=== PATIENT | female | born 1945 | race American Indian/Alaskan Native ===

== ENCOUNTER 2018-10-24 19:51 | Emergency (ER) | payer OTHER ==
--- NOTE | 2018-10-24 20:45 | Emergency Department Report ---
Chief Complaint: Headache Stated Complaint: HEADACHE/BLURRED VISION Time Seen by Provider: 10/24/18 20:39 - HPI History of Present Illness: pt presents to the ED with c/o diffuse KWON started yesterday pt has seeing spots in her vision + generalized weakness no numbness, unilateral weakness PMhx HTN has not been taking medication since she came from [place] last week will send to [facility] for further eval and management MSE screening note: Focused history and physical exam performed. Due to findings the following was ordered: CT head, labs
[2018-10-24 21:03] LABS: Basophils % (Auto) 0.6 % (0.0-1.8); Eosinophils # (Auto) 0.9 K/mm3 (0.0-0.4); Eosinophils % (Auto) 10.4 % (0.0-4.3); Hematocrit 39.8 % (30.3-42.9); Hemoglobin 13.4 gm/dl (10.1-14.3); Lymphocytes # (Auto) 3.4 K/mm3 (1.2-5.4); Lymphocytes % (Auto) 41.5 % (13.4-35.0); Mean Corpuscular HGB Conc 34 % (30-34); Mean Corpuscular Volume 88 fl (79-97); Monocytes # (Auto) 0.8 K/mm3 (0.0-0.8); Monocytes % (Auto) 9.8 % (0.0-7.3); Platelet Count 329 K/mm3 (140-440); Red Cell Distribution Width 13.4 % (13.2-15.2)
[2018-10-24 21:12] LABS: INR 0.9 (0.87-1.13)
[2018-10-24 21:13] LABS: Partial Thromboplastin Time 24.8 Sec. (24.2-36.6)
[2018-10-24 21:26] LABS: Alanine Aminotransferase 14 units/L (7-56); BUN/Creatinine Ratio 23; Blood Urea Nitrogen 18 mg/dL (7-17); Calcium 9.2 mg/dL (8.4-10.2); Hemolysis Index 6
--- NOTE | 2018-10-24 22:25 | Cat Scan Report ---
PROCEDURE: CT HEAD/BRAIN WO CON HISTORY: KWON, black spots in vision FINDINGS: Unenhanced CT of the brain was performed and demonstrates a hyperdense focus in the left fr ontoparietal periventricular white matter, image 32, 0.8 cm suspicious for acute hemorrhage. There is no extra-axial hemorrhage identified. There is no midline shift or mass effect. 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 The mastoid air cells and middle ears appear clear. There is no evidence of acute sinusitis. Both globes are unremarkable. There is no retrobulbar mass or hemorrhage. IMPRESSION: Acute left frontoparietal white matter intraparenchymal hemorrhage This document is electronically signed by Josh Santoyo MD., October 24 2018 10:24:01 PM ET
--- NOTE | 2018-10-24 22:41 | Emergency Department Report ---
ED Neuro Deficit HPI - General Chief Complaint: Headache Stated Complaint: HEADACHE/BLURRED VISION Time Seen by Provider: 10/24/18 20:39 Source: patient Mode of arrival: Ambulatory Limitations: No Limitations - History of Present Illness Initial Comments: Patient is 72 years old female with history of hypertension. Patient arrived from [place] last week for her visits. Patient brought to the emergency room by her daughter. Daughter translating for the patient. Daughter stated that mother is complaining of headache since yesterday with blurry vision. She denied any confusion, focal weakness numbness or tingling sensation. She stated that she is feeling generalized weakness. The patient denied any chest pain or shortness of breath. No bowel or bladder incontinence. GCS is 15. -: Last night Presenting Symptoms: Present: Blurred/Loss of Vision History of same: No Place: home Context: gradual onset - Related Data Allergies/Adverse Reactions: Allergies Allergy/AdvReac Type Severity Reaction Status Date / Time No Known Allergies Allergy Unverified 10/24/18 20:14 ED Review of Systems ROS: Stated complaint: HEADACHE/BLURRED VISION Other details as noted in HPI Comment: All other systems reviewed and negative Constitutional: denies: chills, fever Respiratory: denies: shortness of breath Cardiovascular: denies: chest pain, palpitations Gastrointestinal: denies: abdominal pain, nausea, vomiting, diarrhea, constipation, hematemesis Musculoskeletal: denies: back pain Neurological: headache, weakness (generalized). denies: numbness, paresthesias, confusion, abnormal gait ED Past Medical Hx - Past Medical History Hx Hypertension: Yes - Social History Smoking Status: Never Smoker Substance Use Type: None ED Neuro Physical Exam - General Limitations: No Limitations General appearance: alert, in no apparent distress Suspected Stroke: Yes - Head Head exam: Present: atraumatic, normocephalic, normal inspection - Eye Eye exam: Present: normal appearance, PERRL - ENT ENT exam: Present: normal exam, normal orophraynx, mucous membranes moist - Neck Neck exam: Present: normal inspection, full ROM. Absent: tenderness, meningismus, lymphadenopathy, thyromegaly - Respiratory Respiratory exam: Present: normal lung sounds bilaterally. Absent: respiratory distress, wheezes, rales, rhonchi, chest wall tenderness - Cardiovascular Cardiovascular Exam: Present: regular rate, normal rhythm, normal heart sounds - GI/Abdominal GI/Abdominal exam: Present: soft, normal bowel sounds. Absent: distended, tenderness, guarding, rebound, rigid, organomegaly, mass, bruit, pulsatile mass, hernia - Extremities Exam Extremities exam: Present: normal inspection, full ROM, normal capillary refill. Absent: pedal edema, calf tenderness - Back Exam Back exam: Present: normal inspection, full ROM. Absent: tenderness, CVA tenderness (R), CVA tenderness (L), muscle spasm, paraspinal tenderness, vertebral tenderness - Neurological Exam Neurological exam: Present: alert, oriented X3, CN II-XII intact, normal gait, reflexes normal - NIHSS Assessment Interval: Baseline 1a. Level of Consciousness: alert/keenly responsive 1b. LOC Questions: answers both correctly 1c. LOC Commands: performs tasks correctly 2. Best Gaze: normal 3. Visual: no visual loss 4. Facial Palsy: normal symmetrical movement 5b. Motor Arm Right: no drift 5a. Motor Arm Left: no drift 6a. Motor Leg Left: no drift 6b. Motor Leg Right: no drift 7. Limb Ataxia: absent 8. Sensory: normal 9. Best Language: no aphasia 10. Dysarthria: normal 11. Extinction/Inattention: no abnormality Total Score: 0 Stroke Severity: No Stroke Symptoms - Skin Skin exam: Present: warm, intact, normal color ED Course Vital Signs 10/24/18 10/24/18 10/24/18 20:41 22:51 22:52 Temperature 98.4 F 98.9 F Pulse Rate 89 80 Respiratory 18 12 12 Rate Blood Pressure 148/94 Blood Pressure 142/79 [Left] O2 Sat by Pulse 100 99 99 Oximetry - Lab Data Result diagrams: 10/24/18 20:53 10/24/18 20:53 Lab Results 10/24/18 10/24/18 10/24/18 Range/Units 20:53 20:53 20:53 WBC 8.3 (4.5-11.0) K/mm3 RBC 4.50 (3.65-5.03) M/mm3 Hgb 13.4 (10.1-14.3) gm/dl Hct 39.8 (30.3-42.9) % MCV 88 (79-97) fl MCH 30 (28-32) pg MCHC 34 (30-34) % RDW 13.4 (13.2-15.2) % Plt Count 329 (140-440) K/mm3 Lymph % (Auto) 41.5 H (13.4-35.0) % [place] % (Auto) 9.8 H (0.0-7.3) % Eos % (Auto) 10.4 H (0.0-4.3) % Baso % (Auto) 0.6 (0.0-1.8) % Lymph # 3.4 (1.2-5.4) K/mm3 [place] # 0.8 (0.0-0.8) K/mm3 Eos # 0.9 H (0.0-0.4) K/mm3 Baso # 0.0 (0.0-0.1) K/mm3 Seg Neutrophils % 37.7 L (40.0-70.0) % Seg Neutrophils # 3.1 (1.8-7.7) K/mm3 PT 12.7 (12.2-14.9) Sec. INR 0.90 (0.87-1.13) APTT 24.8 (24.2-36.6) Sec. Sodium 137 (137-145) mmol/L Potassium 3.4 L (3.6-5.0) mmol/L Chloride 97.1 L (98-107) mmol/L Carbon Dioxide 30 (22-30) mmol/L Anion Gap 13 mmol/L BUN 18 H (7-17) mg/dL Creatinine 0.8 (0.7-1.2) mg/dL Estimated GFR > 60 ml/min BUN/Creatinine Ratio 23 % Glucose 117 H (65-100) mg/dL Calcium 9.2 (8.4-10.2) mg/dL Phosphorus 3.00 (2.5-4.5) mg/dL Magnesium 2.30 (1.7-2.3) mg/dL Total Bilirubin 0.20 (0.1-1.2) mg/dL AST 32 (5-40) units/L ALT 14 (7-56) units/L Alkaline Phosphatase 176 H (35-129) units/L Troponin T < 0.010 (0.00-0.029) ng/mL Total Protein 8.6 H (6.3-8.2) g/dL Albumin 4.0 (3.9-5) g/dL Albumin/Globulin Ratio 0.9 % - EKG Data -: EKG Interpreted by Mn EKG shows normal: sinus rhythm Rate: normal Interpretation: no acute changes - Radiology Data Radiology results: report reviewed Referring Physician: STEVEN NUNEZ Patient Name: JORGE BANUELOS Date of : 1945 Sex: Female Report Date: 2018-10-24 Report Status: Finalized Findings [facility] [address] [place] [address] Cat Scan Report Signed Patient: JORGE BANUELOS MR#: [id number] : 1945 Acct:[id number] Age/Sex: 72 / F ADM Date: 10/24/18 Loc: ED Attending Dr: Ordering Physician: TAHMINA GARCÍA Date of Service: 10/24/18 Procedure(s): CT head/brain wo con Accession Number(s): [id number] cc: TAHMINA GARCÍA PROCEDURE: CT HEAD/BRAIN WO CON HISTORY: KWON, black spots in vision FINDINGS: Unenhanced CT of the brain was performed and demonstrates a hyperdense focus in the left frontoparietal periventricular white matter, image 32, 0.8 cm suspicious for acute hemorrhage. There is no extra-axial hemorrhage identified. There is no midline shift or mass effect. 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 The mastoid air cells and middle ears appear clear. There is no evidence of acute sinusitis. Both globes are unremarkable. There is no retrobulbar mass or hemorrhage. IMPRESSION: Acute left frontoparietal white matter intraparenchymal hemorrhage This document is electronically signed by Josh Santoyo MD., October 24 2018 10:24:01 PM ET Transcribed By: OMID Dictated By: JOSH SANTOYO MD Electronically Authenticated By: JOSH SANTOYO MD Signed Date/Time: 10/24/182224 DD/ 07 TD/TT: 10/24/182207 - Medical Decision Making Patient is 72 years old female with history of hypertension. Patient arrived from [place] last week for her visits. Patient brought to the emergency room by her daughter. Daughter translating for the patient. Daughter stated that mother is complaining of headache since yesterday with blurry vision. She denied any confusion, focal weakness numbness or tingling sensation. She stated that she is feeling generalized weakness. The patient denied any chest pain or shortness of breath. No bowel or bladder incontinence. GCS is 15. CT brain showed intracerebral parenchymal hemorrhage. I discussed the patient is Dr. Elizabeth from [place] [facility]. Dr. Elizabeth accepted the patient to be transferred to [facility] ICU. Patient transferred in stable clinical condition. Critical Care Time: Yes Critical care time in (mins) excluding proc time.: 30 Critical care attestation.: If time is entered above; I have spent that time in minutes in the direct care of this critically ill patient, excluding procedure time. ED Disposition Clinical Impression: Intracerebral hemorrhage Disposition: DC/TX-70 ANOTHER TYPE HLTHCARE Is pt being admited?: No Condition: Stable
--- NOTE | 2018-10-24 23:09 | Emergency Department Report ---
Blank Doc - Documentation Documentation: Immediately after screening pt in triage I immediately placed an order for a non contrast CT I advised for patient to be sent to the Main emergency department for evaluation by physician. I discussed with triage nurse on three different occasions to please move the patient to the main emergency department. Triage nurse advised me that she spoke with charge nurse on two different occasions. I also advised that patient's CT head would need to be moved up and completed in a more timely manner.
[2018-10-25 19:42] VITALS: BP 117/77
== END 2018-10-25 06:30 | disposition other institution (70) ==
LOC: ED 19:51
DX: I61.9 Nontraumatic intracerebral hemorrhage, unspecified (principal); I10 Essential (primary) hypertension
CPT/HCPCS: 36415; 70450; 80053; 83735; 84100; 84484; 85025; 85610; 85730; 93005; 93010